=== PATIENT | male | born 1965 | race Two or more races ===

== ENCOUNTER 2016-11-02 11:46 | Emergency (ER) | payer MEDICAID ==
[~2016-11-02] VITALS: Ht 180.3 cm; Wt 89.4 kg
[2016-11-02 14:43] VITALS: BP 144/74
== END 2016-11-02 14:54 | disposition home or self-care (01) ==
LOC: ER 11:46
DX: S01.331A Puncture wound without foreign body of right ear, initial encounter (principal); H66.91 Otitis media, unspecified, right ear; W22.8XXA Striking against or struck by other objects, initial encounter; Y93.89 Activity, other specified; Y92.89 Other specified places as the place of occurrence of the external cause; Y99.8 Other external cause status

== ENCOUNTER 2019-10-22 23:04 | Emergency (ER) | payer MEDICAID ==
[~2019-10-22] VITALS: Ht 180.3 cm; Wt 90.7 kg
[2019-10-22 23:08] VITALS: BP 131/84
== END 2019-10-23 03:50 | disposition left against medical advice (07) ==
LOC: ER 23:04
DX: R06.02 Shortness of breath (principal); R50.9 Fever, unspecified; Z53.21 Procedure and treatment not carried out due to patient leaving prior to being seen by health care provider